=== PATIENT | male | born 1950 | race Caucasian/White ===

== ENCOUNTER 2017-07-20 09:13 | Emergency (ER) | payer MEDICARE ==
[2017-07-20] MEDS ORDERED: Zofran 4 MG/2 ML VIAL IV ONE (09:39)
[2017-07-20] MEDS ORDERED: Sodium Chloride 0.9% 1000 ML 1,000 ML IV SCH (09:45)
--- NOTE | 2017-07-20 10:09 | XRAY ---
Indication: Syncope. Vomiting. Multiple contiguous axial images obtained through the head without contrast. Comparison: None Normal appearing brain parenchyma, ventricles, and bony calvarium. Minimal right ethmoid sinus mucosal thickening. Mastoid air cells clear. Impression: Normal CT head without contrast exam. Incidental minimal paranasal sinus disease. CT DI 67.41
--- NOTE | 2017-07-20 10:09 | XRAY ---
Indication: Syncope. Vomiting. Comparison: None Portable chest demonstrates minimal lingular fibrosis/scarring. Remaining lungs clear. Heart is not enlarged and demonstrates previous CABG surgery. Bony thorax intact with mild degenerative changes. Impression: Nonacute portable chest with chronic features.
[2017-07-20] MEDS ORDERED: Sodium Chloride 0.9% 1000 ML 1,000 ML ONE (10:17)
[2017-07-20] MEDS ORDERED: Zofran 4 MG/2 ML VIAL ONE (10:17)
[2017-07-20 10:21] LABS: BASOPHIL % 0.4 % (0.0-0.4); Basophil (Absolute #) 0.04 (0-0.4); Eosinophil % 1.3 % (0.00-5.0); Eosinophil (Absolute #) 0.14 (0-0.5); Granulocyte Absolute (ANC) 7.89 (1.4-6.9); Granulocytes % 73.8 % (36.0-66.0); Hematocrit 44.8 % (42-50); Hemoglobin 15.2 gm/dl (12.5-18.0); Lymphocyte (Absolute #) 1.99 (1.0-4.6); Lymphocytes % 18.6 % (24.0-44.0); Mean Cell Volume 86.2 fl (78-100); Mean Corpuscular Hemoglobin 29.2 pg (26-32); Mean Corpuscular Hgb Concent. 33.9 g/dl (32-36); Mean Platelet Volume 10.9 fl (6-9.5); Monocyte (Absolute #) 0.63 (0.0-1.3); Monocytes % 5.9 % (0.0-12.0); Platelet Count 189 K/mm3 (150-450); Red Cell Distribution Width 13.9 % (11.5-14.0); White Blood Count 10.7 K/mm3 (4.0-10.5)
--- NOTE | 2017-07-20 10:30 | ERPHSYRPT ---
- History of Present Illness Time Seen by Provider: 07/20/17 09:30 Source: patient Exam Limitations: clinical condition Patient Subjective Stated Complaint: Pt states "I woke up at 5 am and started to vomit, I have been vomiting ever since." Triage Nursing Assessment: Pt alert and oriented X 3, skin pwd Pt ambulates with an upright steady gait, able to speak in clear full sentences. Pt vomiting bile and dry heaving. Physician History: PATIENT WITH A HISTORY OF CORONARY ARTERY DISEASE, HYPERTENSION, PREVIOUS CVA AND TIA, COMPLAINS OF AWAKENING FROM SLEEP, STOOL AT BEDSIDE HAD AN EPISODE OF SYNCOPE, FELL BACK INTO BED, THEN DEVELOPED FREQUENT EPISODES OF EMESIS X 8 EPISODES. DENIES ABDOMINAL PAIN, DIARRHEA, FEVER, HEADACHE, BLURRED VISION, OR FOCAL NUMBNESS, TINGLING OR WEAKNESS IN EXTREMITIES. Timing/Duration: today Severity: moderate Character of Deficits: none Deficits: no difficulties Baseline/Normal Cognition: alert oriented x 3 Current Cognition: alert oriented x 3 Associated Symptoms: vomiting Allergies/Adverse Reactions: Penicillins Allergy (Severe, Verified 07/20/17 09:37) Sulfa (Sulfonamide Antibiotics) Allergy (Severe, Verified 07/20/17 09:37) Home Medications: Alprazolam [Alprazolam ER] 0.5 mg PO DAILY 07/20/17 [History] Aspirin [Adult Low Dose Aspirin EC] 81 mg PO DAILY 07/20/17 [History] Carvedilol 25 mg PO DAILY 07/20/17 [History] Clopidogrel Bisulfate 75 mg [PLAVIX 75 MG Tablet] 75 mg PO DAILY 07/20/17 [History] Cyanocobalamin/Cobamamide [Vitamin B-12 5,000 Mcg Tab Sl] 1 each SL DAILY [History] Diltiazem HCl 120 mg [Cardizem CD 120 MG] 120 mg PO DAILY 07/20/17 [ History] Folic Acid 1 mg PO DAILY 07/20/17 [History] Isosorbide Mononitrate 30 mg [Imdur 30 MG] 30 mg PO DAILY 07/20/17 [History ] Nitroglycerin 0.4 mg Tablet [Nitrostat 0.4 MG Tablet] 0.4 mg SL 07/20/17 [ History] Pantoprazole Sodium [Protonix] 40 mg PO DAILY 07/20/17 [History] Rosuvastatin Calcium 40 mg PO DAILY 07/20/17 [History] Sertraline HCl 50 mg [Zoloft 50 mg Tablet] 50 mg PO DAILY 07/20/17 [History] Hx Tetanus, Diphtheria Vaccination/Date Given: Yes Hx Influenza Vaccination/Date Given: Yes Hx Pneumococcal Vaccination/Date Given: Yes Immunizations Up to Date: Yes - Review of Systems Constitutional: No Fever, No Chills Eyes: No Symptoms Ears, Nose, & Throat: No Symptoms Respiratory: No Symptoms, No Cough, No Dyspnea Cardiac: No Symptoms, No Chest Pain, No Edema, No Syncope Abdominal/Gastrointestinal: Nausea, Vomiting, No Abdominal Pain, No Diarrhea Genitourinary Symptoms: No Symptoms, No Dysuria Musculoskeletal: No Symptoms, No Back Pain, No Neck Pain Skin: No Rash Neurological: Other (SYNCOPE), No Dizziness, No Focal Weakness, No Sensory Changes Psychological: No Symptoms Endocrine: No Symptoms All Other Systems: Reviewed and Negative - Past Medical History Pertinent Past Medical History: Yes Neurological History: Stroke ENT History: No Pertinent History Cardiac History: Coronary Artery Disease, Myocardial Infarction ([place]), Other Respiratory History: Other Endocrine Medical History: No Pertinent History GI Medical History: No Pertinent History History: No Pertinent History Male Reproductive Disorders: No Pertinent History Other Medical History: spinal meingitis, left rotator cuff, spinal fusion, bialt hip, PE, CABG, CVA, stroke, shingles, heart ablasion. - Past Surgical History Past Surgical History: Yes Cardiac: CABG Other Surgical History: left rotator cuff - Social History Smoking Status: Never smoker Exposure to second hand smoke: No Drug Use: none Patient Lives Alone: No - Nursing Vital Signs Nursing Vital Signs: Initial Vital Signs Temperature 97.5 F 07/20/17 09:20 Pulse Rate 68 07/20/17 09:20 Respiratory Rate 16 07/20/17 09:20 Blood Pressure 120/103 07/20/17 09:20 O2 Sat by Pulse Oximetry 96 07/20/17 09:20 Pain Scale Pain Intensity 0 - Barry Coma Scale Best Eye Response ([place]): (4) open spontaneously Best Verbal Response ([place]): (5) oriented Best Motor Response ([place]): (6) obeys commands Barry Total: 15 - Physical Exam General Appearance: no apparent distress, alert Eye Exam: bilateral eye: PERRL, EOMI Ears, Nose, Throat Exam: normal ENT inspection, moist mucous membranes Neck Exam: normal inspection, non-tender, supple Respiratory: normal breath sounds, lungs clear, airway intact, No respiratory distress Cardiovascular: regular rate/rhythm, No edema Gastrointestinal: soft, normal bowel sounds (OBESE NONTENDER), No tenderness, No distention Back Exam: normal inspection Extremity Exam: normal inspection, No pedal edema Peripheral Pulses: carotid (R): 2+, carotid (L): 2+, femoral (R): 2+, femoral (L ): 2+, dorsalis-pedis (R): 2+ Mental Status: alert, oriented x 3, cooperative doorperson or luggage porter Exam: tongue midline Coordination/Gait: normal finger to nose, normal gait Motor/Sensory: no motor deficit, no sensory deficit, no pronator drift DTR: bicep (R): 2+, bicep (L): 2+, tricep (R): 2+, tricep (L): 2+ Skin Exam: normal color, warm, dry, No rash SpO2 Interpretation: normal SpO2: 96 Oxygen Delivery: Room Air - Course EKG Interpreted by Me: RATE, Sinus Rhythm, NORMAL AXIS - Radiology Exams Chest X-ray Interpretation: Discussed w/ radiologist (NONACUTE PORTABLE CHEST WITH CHRONIC FEATURES) - CT Exams Head CT Interpretation: No/Intracranial Hemorrhag (MINIMAL INCIDENTAL PARANASAL SINUS DISEASE) Ordered Tests: Active Orders 24 hr Category Date Time Status Program Director [employer] STAT Care 07/20/17 09:37 Active Clean Catch Urine Specimen STAT Care 07/20/17 09:37 Active EKG-ER Only STAT Care 07/20/17 09:37 Active IV Insertion STAT Care 07/20/17 09:37 Active Oxygen-ED Only NASAL CANNULA 2 lpm Care 07/20/17 09:37 Active CHEST 1 VIEW (PORTABLE) Stat Exams 07/20/17 09:37 Completed HEAD WITHOUT CONTRAST [CT] Stat Exams 07/20/17 09:37 Completed CBC W DIFF Stat Lab 07/20/17 09:33 Completed CMP Stat Lab 07/20/17 09:33 Completed PROTIME WITH INR Stat Lab 07/20/17 09:33 Completed Urine Triage Profile Stat Lab 07/20/17 12:40 Received Medication Summary Generic Name Dose Route Start Last Admin Trade Name Freq PRN Reason Stop Dose Admin Sodium Chloride 1,000 mls @ 200 mls/hr 07/20/17 09:45 07/20/17 10:18 Sodium Chloride 0.9% 1000 Ml IV 08/19/17 09:44 200 mls/hr .Q5H PEDRO Administration Discontinued Medications Generic Name Dose Route Start Last Admin Trade Name Freq PRN Reason Stop Dose Admin Fentanyl Citrate 50 mcg 07/20/17 12:26 07/20/17 12:31 Sublimaze 100 Mcg/2 Ml IV 07/20/17 12:27 50 mcg STAT ONE Administration Fentanyl Citrate Confirm 07/20/17 12:29 Sublimaze 100 Mcg/2 Ml Administered 07/20/17 12:30 Dose 100 mcg .ROUTE .STK-MED ONE Ondansetron HCl 4 mg 07/20/17 09:39 07/20/17 10:19 Zofran 4 Mg/2 Ml Vial IV 07/20/17 09:40 4 mg STAT ONE Administration Ondansetron HCl Confirm 07/20/17 10:17 Zofran 4 Mg/2 Ml Vial Administered 07/20/17 10:18 Dose 4 mg .ROUTE .STK-MED ONE Lab/Rad Data: Laboratory Result Diagrams 07/20/17 09:33 Laboratory Results 07/20/17 07/20/17 07/20/17 Range/Units 09:33 09:33 09:33 WBC 10.7 H (4.0-10.5) K/mm3 RBC 5.20 (4.1-5.6) M/mm3 Hgb 15.2 (12.5-18.0) gm/dl Hct 44.8 (42-50) % MCV 86.2 (78-100) fl MCH 29.2 (26-32) pg MCHC 33.9 (32-36) g/dl RDW 13.9 (11.5-14.0) % Plt Count 189 (150-450) K/mm3 MPV 10.9 H (6-9.5) fl Gran % 73.8 H (36.0-66.0) % Eos # (Auto) 0.14 (0-0.5) Absolute Lymphs (auto) 1.99 (1.0-4.6) Absolute Monos (auto) 0.63 (0.0-1.3) Lymphocytes % 18.6 L (24.0-44.0) % Monocytes % 5.9 (0.0-12.0) % Eosinophils % 1.3 (0.00-5.0) % Basophils % 0.4 (0.0-0.4) % Absolute Granulocytes 7.89 H (1.4-6.9) Basophils # 0.04 (0-0.4) PT 12.0 (8.83-12.87) SECONDS INR 1.08 (0.8-3.0) Anion Gap (5-15) MEQ/L - Progress Progress: improved Progress Note: 07/20/17 13:40 IV NORMAL SALINE 250ML/HR, ZOFRAN 4MG IV FENTANYL 50MCG IV Discussed with Dr.: Other (DISCUSSED WITH NURSE PRACTITIONER JORGE AT 1500 ACCEPTS TRANSFER TO [facility]IA [facility]) - Departure Time of Disposition: 16:30 Departure Disposition: Transfer Clinical Impression: SYNCOPE, INTRACTABLE EMESIS Condition: Stable Critical Care Time: No Referrals: DOCTOR,NO FAMILY [Primary Care Provider] -
[2017-07-20 10:43] LABS: INR 1.08 (0.8-3.0)
[2017-07-20] MEDS ORDERED: SUBLIMAZE 100 MCG/2 ML IV ONE (12:26)
[2017-07-20] MEDS ORDERED: SUBLIMAZE 100 MCG/2 ML ONE (12:29)
[2017-07-20 13:03] VITALS: BP 150/107; PULSE 74
[2017-07-20 13:42] VITALS: O2SAT 96
[2017-07-21 14:06] LABS: Amphetamine,Urine NEGATIVE (NEGATIVE); Barbiturate,Urine NEGATIVE (NEGATIVE); Benzodiazepine,Urine POSITIVE (NEGATIVE); Cocaine,Urine NEGATIVE (NEGATIVE); Methadone,Urine NEGATIVE (NEGATIVE); Opiate,Urine NEGATIVE (NEGATIVE); PCP,Urine NEGATIVE (NEGATIVE); THC,Urine NEGATIVE (NEGATIVE)
== END 2017-07-20 16:35 | disposition short-term general hospital (02) ==
LOC: ED 09:13
DX: R11.10 Vomiting, unspecified (principal); R55 Syncope and collapse; Z79.01 Long term (current) use of anticoagulants; Z79.82 Long term (current) use of aspirin; Z79.899 Other long term (current) drug therapy
CPT/HCPCS: 36000; 36415; 70450; 71045; 80053; 80307; 85025; 85610; 93005; 93041; 96360; 96361; 96374; 96375; 99284; 99285; J2405; J3010

== ENCOUNTER 2020-05-07 08:23 | Day surgery (SDC) | payer MEDICARE, OTHER ==
--- NOTE | 2020-05-07 08:06 | HP ---
DATE OF SURGERY: 05/07/2020 HISTORY OF PRESENT ILLNESS: The patient is a 69 year-old with last colonoscopy ten years ago unsure whether she had polyps then, does not remember. No bloody stools. No change in bowel movements. No abdominal pain. PAST MEDICAL HISTORY: He is seen by the [facility]. He had some meningitis when he was [age] years old. He had TIA in the past. He had benign paroxysmal vertigo in the past. He had a prior stroke in 2008. Spine problems and he had a few hip surgeries in the past. He had myocardial infarction in the past, shingles, heart ablation and heart bypass in the past. PAST SURGICAL HISTORY: Heart cath in the past. Coronary stents in the past. CABG in the past. Hip replacement at [facility] in the past with Staph infection. Spinal fusion in the past. Left rotator cuff in the past. MEDICATIONS: Eliquis, folic acid, alprazolam, isosorbide mononitrate, carvedilol, sertraline, rosuvastatin, Nitrostat, vitamin B12, vitamin B3, meclizine, tramadol, Garlique. ALLERGIES: PENICILLIN. SULFA. FAMILY HISTORY: MS, dementia, Parkinson's. Negative for colon cancer. SOCIAL HISTORY: No smoking or alcohol abuse. REVIEW OF SYSTEMS: Fourteen systems reviewed per admission assessment. No chest pain or palpitations. Other systems negative or noncontributory as above and per preadmission questionnaire. PHYSICAL EXAMINATION: GENERAL: No acute distress. HEENT: Sclerae nonicteric. NECK: No JVD. CHEST: Equal excursion, nonlabored breathing. CVS: Regular rate and rhythm. ABDOMEN: Soft. No peritoneal signs. EXTREMITIES: No significant edema. NEURO: Alert, oriented, moving extremities symmetrically. No gross motor deficits noted. RECTAL: Deferred timed to endoscopy exam. PSYCH: Appropriate mood and affect. IMPRESSION: Last colonoscopy ten years ago. He is in need of follow up screening colonoscopy. I feel he is a candidate. Risks and benefits explained in detail including but not limited to bleeding or infection, risk of bowel injury or perforation possibly requiring open procedure, risk of missed or nondiagnosis or incomplete exam possibly requiring barium enema, other studies or procedures, general risk of anesthesia or sedation, risk of bowel prep but not limited to. He understands all the above but not limited to and will proceed with outpatient colonoscopy.
[2020-05-07] MEDS ORDERED: Lactated Ringers 1,000 ML IV SCH (09:00)
[2020-05-07] MEDS ORDERED: Lactated Ringers 1,000 ML IV ONE (09:02)
[2020-05-07 09:03] VITALS: O2SAT 96
[2020-05-07] MEDS ORDERED: DIPRIVAN 200 MG/20 ML IV ONE (10:37)
[2020-05-07 12:36] VITALS: BP 140/97; PULSE 88
--- NOTE | 2020-05-08 09:07 | OP ---
SURGERY DATE/TIME: 05/07/2020 1040 PREOPERATIVE DIAGNOSIS: Need screening colonoscopy. POSTOPERATIVE DIAGNOSES: 1) Small cecal polyp near appendiceal orifice. 2) Small polyps ascending colon x2, transverse colon x2. 3) Diverticulosis. 4) Fair bowel prep. 5) ASA Class III. 6) Photo documented appendiceal orifice and ileocecal valve with palpation confirming location. PROCEDURES: 1) Colonoscopy to the tip of the terminal ileum which was grossly unremarkable with hot biopsy removal of small cecal polyp, hot biopsy polypectomy removal. 2) Hot biopsy polypectomy removal of piecemeal small proximal ascending colon polyp. 3) Hot biopsy removal of small additional ascending colon polyp. 4) Hot biopsy removal in piecemeal fashion of a couple proximal transverse colon polyps removed with hot biopsy polyectomy. SURGEON: Dr. Estiven Dominique. ANESTHESIA: MAC. ESTIMATED BLOOD LOSS: Minimal. INDICATIONS: As noted above. Risks and benefits explained in detail but not limited to and consent obtained. DESCRIPTION OF PROCEDURE AND FINDINGS: The patient is taken to the operating room. MAC anesthesia introduced. After official time out and no disagreement with planned procedure, digital rectal exam did not reveal any rectal masses. He did have some small internal and external hemorrhoids. Video colonoscope inserted and passed up the tortuous sigmoid, descending, transverse and ascending colon. With the aid of external pressure able to be passed around to the cecum and up to the tip of the terminal ileum which was grossly unremarkable. Prep overall was fair. ASA Class III. On slow careful withdraw of the scope over the next ten minutes removed a small polyp in the cecum near the appendiceal orifice with hot biopsy forceps. Good hemostasis noted. There is a small polyp about 3 mm in size removed in piecemeal fashion with hot biopsy forceps and brief bursts of cautery as the snare was not able to pass through adequately to allow for snaring of these lesions with this particular scope. There was another small polyp in the ascending colon that was removed with hot biopsy forceps with brief bursts of cautery. Good hemostasis noted. Two small early polyps in the transverse colon removed with hot biopsy forceps with brief bursts of cautery. Again, as the snare was not functional through this particular scope. Good hemostasis noted. He had moderate diverticulosis in the left colon. Prep overall is fair, some liquidy semisolid stool that slightly limited the exam for small or tiny lesions. The scope is carefully withdrawn. Again, withdraw time had been around ten minutes. He had some small internal and external hemorrhoids. There were no signs of any large polyps, masses or obstructing lesions. He tolerated the procedure well. I spoke over the phone with family or friend that the hospital called as this hospital is still not letting family members in the hospital unlike other facilities. I will see him back in the office next week to go over results.
== END 2020-05-07 12:20 | disposition home or self-care (01) ==
LOC: SDC 08:23
PROVIDERS: ATTEND Surgery
DX: Z12.11 Encounter for screening for malignant neoplasm of colon (principal); K57.30 Diverticulosis of large intestine without perforation or abscess without bleeding; D12.2 Benign neoplasm of ascending colon; D12.0 Benign neoplasm of cecum; D12.3 Benign neoplasm of transverse colon; K64.4 Residual hemorrhoidal skin tags; K64.8 Other hemorrhoids
CPT/HCPCS: 88305; J2704

== ENCOUNTER 2022-02-01 13:14 | Emergency (ER) | payer OTHER, MEDICARE ==
--- NOTE | 2022-02-01 13:18 | ERPHSYRPT ---
- History of Present Illness Time Seen by Provider: 02/01/22 13:17 Historian: patient Exam Limitations: no limitations Physician History: This is a 71-year-old white male patient who has history of a in the past, coronary disease, myocardial infarction, cardiac stents, coronary artery bypass graft, cardiac ablation and atrial fibrillation. Patient is taking Eliquis. Patient also has history of hyperlipidemia, hypertension, CHF, pulmonary embolus, gastroesophageal reflux disease and anxiety issues. Within the last hour patient noticed chest pressure that is substernal central without radiation. He states is not necessarily the same kind of chest pain that he has had in the past with myocardial infarction's. Soon after, while the patient was driving, he noticed some double vision. Patient does have a history of vertigo. He does take meclizine daily for this condition. Patient states he did take meclizine this morning. 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 Patient sees a Dr. De La Cruz as his pollution control engineer in [facility]. Yue ent states that he had a stress test done within the last few months and there were no significant findings and no evidence of valvular leakage. At the time of arrival to the emergency department, the patient states that his symptoms have nearly completely resolved. Timing/Duration: today Quality: pressure Location: substernal, central Chest Pain Radiation: no radiation Severity of Pain-Max: mild Severity of Pain-Current: mild Modifying Factors: Improves With: nothing Associated Symptoms: dizziness (Patient has a history of vertigo), No shortness of breath, No headache Prior Chest Pain/Cardiac Workup: cardiac cath, heart attack, pulmonary embolism, stress test Nitro Today/Relief: no nitro taken today Aspirin Treatment Today: no aspirin today Allergies/Adverse Reactions: Penicillins Allergy (Severe, Verified 02/01/22 13:36) Swelling of Tongue and Lips Sulfa (Sulfonamide Antibiotics) Allergy (Severe, Verified 02/01/22 13:36) Swelling of Tongue and Lips Home Medications: Alprazolam [Alprazolam ER] 0.5 mg PO DAILY 07/20/17 [History] Cyanocobalamin/Cobamamide [Vitamin B-12 5,000 Mcg Tab Sl] 1 each SL DAILY 07/20/17 [History] Folic Acid 1 mg PO DAILY 07/20/17 [History] Isosorbide Mononitrate 30 mg [Imdur 30 MG] 30 mg PO DAILY 07/20/17 [History] Nitroglycerin 0.4 mg Tablet [Nitrostat 0.4 MG Tablet] 0.4 mg SL Q5MIN PRN MR X 3 PRN 07/20/17 [History] Rosuvastatin Calcium 40 mg PO DAILY 07/20/17 [History] carvediloL [Carvedilol] 25 mg PO DAILY 07/20/17 [History] Cholecalciferol (Vitamin D3) [Vitamin D3] 1,000 unit PO DAILY 04/27/20 [History] Garlic 1 each PO DAILY 04/27/20 [History] Meclizine HCl 25 mg [Antivert 25 mg] 25 mg PO DAILY 04/27/20 [History] Spironolactone 25 mg [Aldactone 25 MG] 25 mg PO DAILY 04/27/20 [History] Tramadol HCl 50 mg PO DAILY PRN PRN 04/27/20 [History] Hx Tetanus, Diphtheria Vaccination/Date Given: Yes Hx Influenza Vaccination/Date Given: Yes Hx Pneumococcal Vaccination/Date Given: Yes Travel Risk - International Travel Have you traveled outside of the country in past 3 weeks: No - Coronavirus Screening Are you exhibiting any of the following symptoms?: No Close contact with a COVID-19 positive Pt in past 14-21 Days: No - Review of Systems Constitutional: No Symptoms Eyes: No Symptoms Ears, Nose, & Throat: No Symptoms Respiratory: No Symptoms Cardiac: Chest Pain (Described as a nonradiating central substernal pressure) Abdominal/Gastrointestinal: No Symptoms Genitourinary Symptoms: No Symptoms Musculoskeletal: No Symptoms Skin: No Symptoms Neurological: Dizziness (Brief dizziness with brief double vision) Psychological: No Symptoms Endocrine: No Symptoms Hematologic/Lymphatic: No Symptoms Immunological/Allergic: No Symptoms All Other Systems: Reviewed and Negative - Past Medical History Pertinent Past Medical History: Yes Neurological History: Stroke ENT History: No Pertinent History Cardiac History: Angina, Congestive Heart Failure, Coronary Artery Disease, High Cholesterol, Hypertension, Myocardial Infarction ([place]), Other Respiratory History: Pulmonary Embolism, Other Endocrine Medical History: No Pertinent History Musculoskeletal History: Arthritis, Osteoarthritis GI Medical History: GERD History: Other Psycho-Social History: Anxiety Male Reproductive Disorders: No Pertinent History Other Medical History: spinal meingitis, left rotator cuff, spinal fusion, bialt hip, PE, CABG, CVA, stroke, shingles, heart ablasion. - Past Surgical History Past Surgical History: Yes Neuro Surgical History: No Pertinent History Cardiac: CABG, Cardiac Catheterization, Cardiac Stent, Other Respiratory: No Pertinent History Gastrointestinal: No Pertinent History Genitourinary: No Pertinent History Musculoskeletal: Joint Replacement Male Surgical History: No Pertinent History Other Surgical History: left rotator cuff, cardiac ablation, bilateral hip replacedment, lumbar fusion. - Social History Smoking Status: Never smoker Exposure to second hand smoke: No Drug Use: none Patient Lives Alone: No - Nursing Vital Signs Nursing Vital Signs: Initial Vital Signs Temperature 97.0 F 02/01/22 13:35 Pulse Rate 82 02/01/22 13:35 Respiratory Rate 18 02/01/22 13:35 Blood Pressure 140/81 02/01/22 13:35 O2 Sat by Pulse Oximetry 94 L 02/01/22 13:35 Pain Scale Pain Intensity 4 - Physical Exam General Appearance: no apparent distress, alert, anxiety Eye Exam: PERRL/EOMI, eyes nml inspection Ears, Nose, Throat Exam: normal ENT inspection, moist mucous membranes Neck Exam: normal inspection, non-tender, supple, full range of motion Respiratory Exam: normal breath sounds, lungs clear, airway intact, No chest tenderness, No respiratory distress Cardiovascular Exam: regular rate/rhythm, normal heart sounds, normal peripheral pulses Gastrointestinal/Abdomen Exam: soft, normal bowel sounds, No tenderness Rectal Exam: not done Back Exam: normal inspection, normal range of motion, No CVA tenderness Extremity Exam: normal inspection, normal range of motion, pelvis stable Neurologic Exam: alert, oriented x 3, cooperative, gear tester II-XII nml as tested, normal mood/affect, nml cerebellar function, nml station & gait, sensation nml Skin Exam: normal color, warm, dry Lymphatic Exam: No adenopathy SpO2 Interpretation: normal O2 Delivery: Room Air - Course Nursing assessment & vital signs reviewed: Yes EKG Interpreted by Me: RATE (76), Sinus Rhythm, NORMAL INTERVALS, NORMAL QRS, Non-specific ST Changes, Other (Findings consistent with LVH. No acute ischemic changes present) Ordered Tests: Active Orders 24 hr Category Date Time Status EKG-ER Only STAT Care 02/01/22 13:46 Active IV Insertion STAT Care 02/01/22 13:46 Active Pulse Oximetry (ED) STAT Care 02/01/22 13:46 Active HEAD WITHOUT CONTRAST [CT] Stat Exams 02/01/22 13:16 Taken CBC W DIFF Stat Lab 02/01/22 13:40 Completed CMP Stat Lab 02/01/22 13:40 Completed D-DIMER QUANTITATIVE Stat Lab 02/01/22 13:40 Completed NT PRO BNP Stat Lab 02/01/22 13:40 Completed TROPONIN Q4H Lab 02/01/22 13:40 Completed TROPONIN Q4H Lab 02/01/22 16:46 Completed TROPONIN Q4H Lab 02/01/22 22:00 Ordered Medication Summary Discontinued Medications Generic Name Dose Route Start Last Admin Trade Name Freq PRN Reason Stop Dose Admin Aspirin 324 mg 02/01/22 13:46 02/01/22 13:59 Aspirin 81 Mg Tab.Chew PO 02/01/22 13:47 324 mg STAT ONE Administration Lab/Rad Data: Laboratory Result Diagrams 02/01/22 13:40 02/01/22 13:40 Laboratory Results 02/01/22 02/01/22 02/01/22 Range/Units 16:46 13:40 13:40 WBC (4.0-10.5) x10^3/uL RBC (4.1-5.6) x10^6/uL Hgb (12.5-18.0) g/dL Hct (42-50) % MCV (78-100) fL MCH (26-32) pg MCHC (32-36) g/dL RDW (11.5-14.0) % Plt Count (150-450) x10^3/uL MPV (7.5-11.0) fL Gran % (36.0-66.0) % Immature Gran % (Auto) (0.00-0.4) % Nucleat RBC Rel Count (0.00-0.1) % Eos # (Auto) (0-0.5) x10^3/uL Immature Gran # (Auto) (0.00-0.03) x10^3u/L Absolute Lymphs (auto) (1.0-4.6) x10^3/uL Absolute Monos (auto) (0.0-1.3) x10^3/uL Absolute Nucleated RBC (0.00-0.01) x10^3u/L Lymphocytes % (24.0-44.0) % Monocytes % (0.0-12.0) % Eosinophils % (0.00-5.0) % Basophils % (0.0-0.4) % Absolute Granulocytes (1.4-6.9) x10^3/uL Basophils # (0-0.4) x10^3/uL D-Dimer < 0.19 (0.0-0.50) mg/L Sodium (137-145) mmol/L Potassium (3.5-5.1) mmol/L Chloride (98-107) mmol/L Carbon Dioxide (22-30) mmol/L Anion Gap (5-15) MEQ/L BUN (9-20) mg/dL Creatinine (0.66-1.25) mg/dL Estimated GFR ML/MIN Glucose (74-106) mg/dL Calcium (8.4-10.2) mg/dL Total Bilirubin (0.2-1.3) mg/dL AST (17-59) U/L ALT (0-50) U/L Alkaline Phosphatase (38-126) U/L Troponin I < 0.012 < 0.012 (0.000-0.034) ng/mL NT-Pro-B Natriuret Pep (0-900) pg/mL Serum Total Protein (6.3-8.2) g/dL Albumin (3.5-5.0) g/dL 02/01/22 02/01/22 Range/Units 13:40 13:40 WBC 6.4 (4.0-10.5) x10^3/uL RBC 5.07 (4.1-5.6) x10^6/uL Hgb 14.9 (12.5-18.0) g/dL Hct 45.5 (42-50) % MCV 89.7 (78-100) fL MCH 29.4 (26-32) pg MCHC 32.7 (32-36) g/dL RDW 13.1 (11.5-14.0) % Plt Count 192 (150-450) x10^3/uL MPV 10.1 (7.5-11.0) fL Gran % 57.3 (36.0-66.0) % Immature Gran % (Auto) 0.2 (0.00-0.4) % Nucleat RBC Rel Count 0.0 (0.00-0.1) % Eos # (Auto) 0.15 (0-0.5) x10^3/uL Immature Gran # (Auto) 0.01 (0.00-0.03) x10^3u/L Absolute Lymphs (auto) 1.87 (1.0-4.6) x10^3/uL Absolute Monos (auto) 0.61 (0.0-1.3) x10^3/uL Absolute Nucleated RBC 0.00 (0.00-0.01) x10^3u/L Lymphocytes % 29.4 (24.0-44.0) % Monocytes % 9.6 (0.0-12.0) % Eosinophils % 2.4 (0.00-5.0) % Basophils % 1.1 (0.0-0.4) % Absolute Granulocytes 3.66 (1.4-6.9) x10^3/uL Basophils # 0.07 (0-0.4) x10^3/uL D-Dimer (0.0-0.50) mg/L Sodium 137 (137-145) mmol/L Potassium 5.0 (3.5-5.1) mmol/L Chloride 108 H (98-107) mmol/L Carbon Dioxide 23 (22-30) mmol/L Anion Gap 11.4 (5-15) MEQ/L BUN 13 (9-20) mg/dL Creatinine 0.91 (0.66-1.25) mg/dL Estimated GFR > 60.0 ML/MIN Glucose 96 (74-106) mg/dL Calcium 9.1 (8.4-10.2) mg/dL Total Bilirubin 1.10 (0.2-1.3) mg/dL AST 37 (17-59) U/L ALT 25 (0-50) U/L Alkaline Phosphatase 51 (38-126) U/L Troponin I (0.000-0.034) ng/mL NT-Pro-B Natriuret Pep 39.7 (0-900) pg/mL Serum Total Protein 7.9 (6.3-8.2) g/dL Albumin 4.4 (3.5-5.0) g/dL - Progress Progress: improved, re-examined Air Movement: good Progress Note: 02/01/22 17:23 Medical decision making: This patient no longer has chest pain or pressure. He no longer has dizziness or double vision. We will discharge the patient to [facility]. He has had 2 troponin levels that are negative for acute myocardial infarction. He may have had a TIA. We will discharge him to home and he is to follow-up with pollution control engineer and neurologist for further evaluation management. Blood Culture(s) Obtained: No Antibiotics given: No Counseled pt/family regarding: lab results, diagnosis, need for follow-up, rad results - Departure Departure Disposition: Home Clinical Impression: TIA (transient ischemic attack), Pressure in chest Condition: Stable Critical Care Time: No Referrals: DOCTOR,NO FAMILY [NON-STAFF PHY W/O PRIVILEGES] - Follow up/PCP as directed Additional Instructions: Take all your medication as prescribed. Follow-up with a pollution control engineer on 02/03/2022, and make them aware of your symptoms and your work-up at the emergency department.
[2022-02-01] MEDS ORDERED: BABY ASPIRIN 81 MG CHEW PO ONE (13:46)
[2022-02-01 13:48] VITALS: O2SAT 95
[2022-02-01 13:53] LABS: Absolute Neutrophil Ct (ANC) 3.66 x10^3/uL (1.4-6.9); Basophil (Absolute #) 0.07 x10^3/uL (0-0.4); Eosinophil % 2.4 % (0.00-5.0); Eosinophil (Absolute #) 0.15 x10^3/uL (0-0.5); Hematocrit 45.5 % (42-50); Hemoglobin 14.9 g/dL (12.5-18.0); Lymphocyte (Absolute #) 1.87 x10^3/uL (1.0-4.6); Lymphocytes % 29.4 % (24.0-44.0); Mean Cell Volume 89.7 fL (78-100); Mean Corpuscular Hemoglobin 29.4 pg (26-32); Mean Corpuscular Hgb Concent. 32.7 g/dL (32-36); Mean Platelet Volume 10.1 fL (7.5-11.0); Monocyte (Absolute #) 0.61 x10^3/uL (0.0-1.3); Monocytes % 9.6 % (0.0-12.0); Neutrophil % 57.3 % (36.0-66.0); Platelet Count 192 x10^3/uL (150-450); Red Blood Count 5.07 x10^6/uL (4.1-5.6); Red Cell Distribution Width 13.1 % (11.5-14.0); White Blood Count 6.4 x10^3/uL (4.0-10.5)
[2022-02-01 14:10] LABS: ALBUMIN 4.4 g/dL (3.5-5.0); ALKALINE PHOSPHATASE 51 U/L (38-126); ANION GAP 11.4 MEQ/L (5-15); BLOOD UREA NITROGEN 13 mg/dL (9-20); CHLORIDE 108 mmol/L (98-107); Calcium 9.1 mg/dL (8.4-10.2); Carbon Dioxide 23 mmol/L (22-30); Creatinine 1 0.91 mg/dL (0.66-1.25); EST GLOMERULAR FILTRATION RATE > 60.0 ML/MIN; Glucose 96 mg/dL (74-106); NT PRO BNP 39.7 pg/mL (0-900); SGOT/AST 37 U/L (17-59); SGPT/ALT 25 U/L (0-50); SODIUM 137 mmol/L (137-145); Total Protein 7.9 g/dL (6.3-8.2)
[2022-02-01 17:18] VITALS: BP 128/78; PULSE 78
--- NOTE | 2022-02-01 19:15 | XRAY ---
Indication: Double vision. History of stroke. Multiple contiguous axial images obtained through the head without contrast. Comparison: July 20, 2017 Age-appropriate global atrophy and minimal periventricular degenerative micro-ischemia bilaterally. No acute intracranial hemorrhage, abnormal extra-axial fluid collection, or mass effect. Fourth ventricle is midline without hydrocephalus. Bony calvarium intact. Mild mucosal thickening both ethmoid and right sphenoid sinuses. Mastoid air cells are clear. Impression: Nonacute senile brain. Incidental mild paranasal sinus disease. Comment: Preliminary interpretation made by [facility]. No critical discrepancy.
== END 2022-02-01 17:41 | disposition home or self-care (01) ==
LOC: ED 13:14
DX: G45.9 Transient cerebral ischemic attack, unspecified (principal); R07.9 Chest pain, unspecified; H53.2 Diplopia; E78.5 Hyperlipidemia, unspecified; I11.0 Hypertensive heart disease with heart failure; I50.9 Heart failure, unspecified; Z79.01 Long term (current) use of anticoagulants; Z79.899 Other long term (current) drug therapy
CPT/HCPCS: 36000; 36415; 70450; 80053; 83880; 84484; 85025; 85379; 93005; 94760; 99284; A9270-GY

== ENCOUNTER 2023-09-11 22:27 | Emergency (ER) | payer OTHER ==
[2023-09-11 22:33] VITALS: TEMP 96.4
--- NOTE | 2023-09-11 22:35 | ERPHSYRPT ---
- History of Present Illness Time Seen by Provider: 09/11/23 22:35 Source: patient Exam Limitations: no limitations Physician History: This is an obese 72-year-old white male patient who was at home in his barn and noticed that there was a cat up in the barn stuck. The patient, who has positional vertigo, suddenly looked up, which he states he knew he should not have but he wanted to help get the cat down from where he if he was stuck in the barn and the patient began having his vertigo spell. He fell forward and fell into a concrete slab going across his abdomen. He did not hit his chest in any way per his report. He did not lose consciousness. He did not hit his head or neck. His main complaint upon arrival to the emergency department is abdominal pain and some mild shortness of breath because his abdomen hurts when he takes a deep breath. Patient was brought into the emergency department by the paramedics. 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 He denies chest pain and he denies shortness of breath today. Occurred: just prior to arrival Reason for Fall: became dizzy (Vertigo set and when he looked up) Injuries/Pain Location: abdomen Loss of Consciousness: no loss of consciousness Quality: aching Severity of Pain-Max: moderate Severity of Pain-Current: moderate Modifying Factors: Improves With: movement Associated Symptoms (Fall): abdominal pain, dizziness, No back pain, No confusion, No chest pain, No extremity injury, No headache Allergies/Adverse Reactions: Penicillins Allergy (Severe, Verified 02/01/22 13:36) Swelling of Tongue and Lips Sulfa (Sulfonamide Antibiotics) Allergy (Severe, Verified 02/01/22 13:36) Swelling of Tongue and Lips Home Medications: Alprazolam [Alprazolam ER] 0.5 mg PO DAILY 07/20/17 [History] Cyanocobalamin/Cobamamide [Vitamin B-12 5,000 Mcg Tab Sl] 1 each SL DAILY 07/20/17 [History] Folic Acid 1 mg PO DAILY 07/20/17 [History] Isosorbide Mononitrate 30 mg [Imdur 30 MG] 30 mg PO DAILY 07/20/17 [History] Nitroglycerin 0.4 mg Tablet [Nitrostat 0.4 MG Tablet] 0.4 mg SL Q5MIN PRN MR X 3 PRN 07/20/17 [History] Rosuvastatin Calcium 40 mg PO DAILY 07/20/17 [History] carvediloL [Carvedilol] 25 mg PO DAILY 07/20/17 [History] Cholecalciferol (Vitamin D3) [Vitamin D3] 1,000 unit PO DAILY 04/27/20 [History] Garlic 1 each PO DAILY 04/27/20 [History] Meclizine HCl 25 mg [Antivert 25 mg] 25 mg PO DAILY 04/27/20 [History] Spironolactone 25 mg [Aldactone 25 MG] 25 mg PO DAILY 04/27/20 [History] Tramadol HCl 50 mg PO DAILY PRN PRN 04/27/20 [History] Hx Tetanus, Diphtheria Vaccination/Date Given: Yes Hx Influenza Vaccination/Date Given: Yes Hx Pneumococcal Vaccination/Date Given: Yes Travel Risk - International Travel Have you traveled outside of the country in past 3 weeks: No - Emerging Infectious Disease Are you exhibiting symptoms associated with any current EIDs: No - Review of Systems Constitutional: No Symptoms Eyes: No Symptoms Ears, Nose, & Throat: No Symptoms Respiratory: No Symptoms Cardiac: No Symptoms Abdominal/Gastrointestinal: Abdominal Pain, Nausea, Vomiting Genitourinary Symptoms: No Symptoms Musculoskeletal: No Symptoms Skin: No Symptoms Neurological: Vertigo (Occurred when he suddenly looked up.. This has been a problem for him in the past.) Psychological: Anxiety Endocrine: No Symptoms Hematologic/Lymphatic: No Symptoms Immunological/Allergic: No Symptoms All Other Systems: Reviewed and Negative - Past Medical History Pertinent Past Medical History: Yes Neurological History: Stroke ENT History: No Pertinent History Cardiac History: Angina, Congestive Heart Failure, Coronary Artery Disease, High Cholesterol, Hypertension, Myocardial Infarction (ID), Other Respiratory History: Pulmonary Embolism, Other Endocrine Medical History: No Pertinent History Musculoskeletal History: Arthritis, Osteoarthritis GI Medical History: GERD History: Other Psycho-Social History: Anxiety Male Reproductive Disorders: No Pertinent History Other Medical History: spinal meingitis, left rotator cuff, spinal fusion, bialt hip, PE, CABG, CVA, stroke, shingles, heart ablasion. - Past Surgical History Past Surgical History: Yes Neuro Surgical History: No Pertinent History Cardiac: CABG, Cardiac Catheterization, Cardiac Stent, Other Respiratory: No Pertinent History Gastrointestinal: No Pertinent History Genitourinary: No Pertinent History Musculoskeletal: Joint Replacement Male Surgical History: No Pertinent History Other Surgical History: left rotator cuff, cardiac ablation, bilateral hip replacement, lumbar fusion, stent placed 2008, skin cancer removal above R eyebrow in June. - Social History Smoking Status: Never smoker Exposure to second hand smoke: No Drug Use: none Patient Lives Alone: No - Nursing Vital Signs Nursing Vital Signs: Initial Vital Signs Temperature 96.4 F 09/11/23 22:27 Pulse Rate 106 H 09/11/23 22:27 Respiratory Rate 22 09/11/23 22:27 Blood Pressure 107/82 09/11/23 22:27 O2 Sat by Pulse Oximetry 99 09/11/23 22:27 Pain Scale Pain Intensity 8 - Barry Coma Score Best Eye Response (Barry): (4) open spontaneously Best Verbal Response (Barry): (5) oriented Best Motor Response (Barry): (6) obeys commands Barry Total: 15 - Physical Exam General Appearance: no apparent distress, alert, anxiety Head Injury: no evidence of injury Eye Exam: PERRL/EOMI, eyes nml inspection ENT Exam: airway nml, nml ext.inspection Neck Exam: supple, trachea midline, full range of motion, normal alignment, normal inspection Respiratory/Chest Exam: normal breath sounds, No chest tenderness, No respiratory distress, No ecchymosis, No crepitus Cardiovascular Exam: tachycardia (Mild) Gastrointestinal Exam: soft, tenderness (Across his abdomen. 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 Patient's QTc is 458.) Ordered Tests: Active Orders 24 hr Category Date Time Status EKG-ER Only STAT Care 09/11/23 23:09 Active IV Insertion STAT Care 09/11/23 23:09 Active ABDOMEN AND PELVIS W/0 CONTRAS [CT] Stat Exams 09/11/23 23:09 Completed CHEST 1 VIEW (PORTABLE) Stat Exams 09/11/23 23:09 Completed CBC W DIFF Stat Lab 09/11/23 23:00 Completed CMP Stat Lab 09/11/23 23:00 Completed TROPONIN Q4H Lab 09/11/23 23:00 Completed TROPONIN Q4H Lab 09/12/23 03:15 Ordered TROPONIN Q4H Lab 09/12/23 07:15 Ordered Medication Summary Generic Name Dose Route Start Last Admin Trade Name Freq PRN Reason Stop Dose Admin Sodium Chloride 1,000 mls @ 100 mls/hr 09/11/23 23:15 09/11/23 23:29 Sodium Chloride 0.9% 1000 Ml IV 10/11/23 23:14 100 mls/hr .Q10H PEDRO Administration Discontinued Medications Generic Name Dose Route Start Last Admin Trade Name Freq PRN Reason Stop Dose Admin Morphine Sulfate 4 mg 09/11/23 23:09 09/11/23 23:29 Morphine Sulfate 4 Mg/Ml Injection IV 09/11/23 23:10 4 mg STAT ONE Administration Morphine Sulfate Confirm 09/11/23 23:27 Morphine Sulfate 4 Mg/Ml Injection Administered 09/11/23 23:28 Dose 4 mg .ROUTE .STK-MED ONE Morphine Sulfate 2 mg 09/12/23 01:18 09/12/23 01:26 Morphine Sulfate 2 Mg/Ml Inj IV 09/12/23 01:19 2 mg STAT ONE Administration Morphine Sulfate Confirm 09/12/23 01:24 Morphine Sulfate 2 Mg/Ml Inj Administered 09/12/23 01:25 Dose 2 mg .ROUTE .STK-MED ONE Prochlorperazine Edisylate 5 mg 09/11/23 23:09 09/11/23 23:28 Prochlorperazine Edisylate 10 Mg/2 Ml Vial IV 09/11/23 23:10 5 mg STAT ONE Administration Prochlorperazine Edisylate Confirm 09/11/23 23:27 Prochlorperazine Edisylate 10 Mg/2 Ml Vial Administered 09/11/23 23:28 Dose 10 mg .ROUTE .STK-MED ONE Lab/Rad Data: Laboratory Result Diagrams 09/11/23 23:00 09/11/23 23:00 Laboratory Results 09/11/23 09/11/23 09/11/23 Range/Units 23:00 23:00 23:00 WBC 15.6 H (4.23-9.07) x10^3/uL RBC 4.68 (4.63-6.08) x10^6/uL Hgb 13.8 (13.7-17.5) g/dL Hct 42.3 (40.1-51.0) % MCV 90.4 (79.0-92.2) fL MCH 29.5 (25.7-32.2) pg MCHC 32.6 (32.3-36.5) g/dL RDW 13.4 (11.6-14.4) % Plt Count 229 (163-337) x10^3/uL MPV 10.4 (9.4-12.4) fL Gran % 80.1 H (34.0-67.9) % Immature Gran % (Auto) 0.4 (0.001-0.429) % Nucleat RBC Rel Count 0.0 (0.00-0.2) % Eos # (Auto) 0.02 L (0.04-0.54) x10^3/uL Immature Gran # (Auto) 0.07 H (0.001-0.031) x10^3u/L Absolute Lymphs (auto) 2.17 (1.32-3.57) x10^3/uL Absolute Monos (auto) 0.80 (0.30-0.82) x10^3/uL Absolute Nucleated RBC 0.00 (0.00-0.012) x10^3u/L Lymphocytes % 13.9 L (21.8-53.1) % Monocytes % 5.1 L (5.3-12.2) % Eosinophils % 0.1 L (0.8-7.0) % Basophils % 0.4 (0.2-1.2) % Absolute Granulocytes 12.44 H (1.78-5.38) x10^3/uL Basophils # 0.07 (0.01-0.08) x10^3/uL Sodium 140 (135-145) mmol/L Potassium 4.7 (3.5-5.1) mmol/L Chloride 106 (98-107) mmol/L Carbon Dioxide 19 L (22-30) mmol/L Anion Gap 19.1 H (5-15) MEQ/L BUN 22 H (9-20) mg/dL Creatinine 1.64 H (0.66-1.25) mg/dL Estimated GFR 44.4 ML/MIN Glucose 227 H (74-106) mg/dL Calcium 10.2 (8.4-10.2) mg/dL Total Bilirubin 0.60 (0.2-1.3) mg/dL AST 29 (17-59) U/L ALT 34 (0-50) U/L Alkaline Phosphatase 63 (38-126) U/L Troponin I < 0.012 (0.000-0.033) ng/mL Serum Total Protein 7.6 (6.3-8.2) g/dL Albumin 4.5 (3.5-5.0) g/dL - Progress Progress: improved, pain not gone completely, re-examined Progress Note: 09/12/23 00:03 My medical decision making and the assignment of moderate to high complexity to this patient's medical issue is based on review of the patient's past medical history, review the patient's medication list, review patient drug allergy list, history present illness and physical findings on examination. The workup in this patient includes placement of intravenous line, twelve-lead EKG, CBC, CMP, troponin level, chest x-ray and CT scan of the abdomen pelvis without contrast. 09/12/23 00:03 Differential diagnosis includes but is not limited to abdominal wall trauma, intra-abdominal or intrapelvic acute abnormality, electrolyte abnormalities, EKG arrhythmia 09/12/23 01:02 I interpreted the patient's laboratory data results. Patient has a leukocytosis of over 15,000 with a left shift. No other acute, emergent findings are present. Chest x-ray was interpreted by the radiologist and I reviewed the impression. Impression states no definite evidence of consolidation, cavitation or pleural effusion. There are amorphous calcifications seen proximal right humeral shaft. CT scan of the abdomen pelvis without contrast was interpreted by the radiologist and I reviewed the impression. Impression states high density mild to moderate abdominopelvic ascites representing hemoperitoneum. There is fairly large (14.5 cm x 4.2 cm) perisplenic hematoma. In addition there is mild high density fluid hemoperitoneum in the perihepatic region. 09/12/23 01:04 09/12/23 01:58 I spoke with the trauma surgeon, Dr. Singleton, [facility]. I reviewed the patient history, presenting complaint, results of the laboratory, EKG and radiographic studies. He felt that the patient, who currently is relatively hemodynamically stable, might be better served at a facility that has the ability to do angiography and embolization. They do not perform that type of procedure at that facility. We will contact a trauma center out of [place]. Patient's current vital signs have a systolic blood pressure of 112 and a heart rate of normal sinus rhythm at 100. His respiratory rate is 17 and his room air oxygen saturation level is 99%. 09/12/23 02:24 This patient was auto accepted at [facility] in [place]. The x- ray studies were sent to the cloud for them. The nursing staff here in the emergency department is caring air transport for this patient. 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 - Diagnostic Testing Diagnostic test were ordered, analyzed, and reviewed by me: Yes Radiological Interpretation: Reviewed by me, Teleradiologist Report - Risk of complications The pt has a high risk of morbidity or mortality based on: Decision regarding hospitilization or escalation of hosp level of care - Departure Departure Disposition: Transfer Clinical Impression: Trauma, Hemoperitoneum Condition: Serious Critical Care Time: Yes Critical Care Time(excluding separately billable procedures): Critical 30-74 mins (50) Referrals: SANIA CEBALLOS MD [Primary Care Provider] - Follow up/PCP as directed
[2023-09-11 23:14] LABS: Absolute Neutrophil Ct (ANC) 12.44 x10^3/uL (1.78-5.38); BASOPHIL % 0.4 % (0.2-1.2); Basophil (Absolute #) 0.07 x10^3/uL (0.01-0.08); Eosinophil % 0.1 % (0.8-7.0); Eosinophil (Absolute #) 0.02 x10^3/uL (0.04-0.54); Hematocrit 42.3 % (40.1-51.0); Hemoglobin 13.8 g/dL (13.7-17.5); IMMATURE GRAN # 0.07 x10^3u/L (0.001-0.031); IMMATURE GRAN % 0.4 % (0.001-0.429); Lymphocyte (Absolute #) 2.17 x10^3/uL (1.32-3.57); Lymphocytes % 13.9 % (21.8-53.1); Mean Cell Volume 90.4 fL (79.0-92.2); Mean Corpuscular Hemoglobin 29.5 pg (25.7-32.2); Mean Corpuscular Hgb Concent. 32.6 g/dL (32.3-36.5); Mean Platelet Volume 10.4 fL (9.4-12.4); Monocytes % 5.1 % (5.3-12.2); Neutrophil % 80.1 % (34.0-67.9); Platelet Count 229 x10^3/uL (163-337); Red Blood Count 4.68 x10^6/uL (4.63-6.08); Red Cell Distribution Width 13.4 % (11.6-14.4); White Blood Count 15.6 x10^3/uL (4.23-9.07)
[2023-09-11 23:20] LABS: ALBUMIN 4.5 g/dL (3.5-5.0); ANION GAP 19.1 MEQ/L (5-15); BILIRUBIN,TOTAL 0.6 mg/dL (0.2-1.3); Calcium 10.2 mg/dL (8.4-10.2); Creatinine 1 1.64 mg/dL (0.66-1.25); EST GLOMERULAR FILTRATION RATE 44.4 ML/MIN; Potassium 4.7 mmol/L (3.5-5.1); Total Protein 7.6 g/dL (6.3-8.2)
[2023-09-11] MEDS ORDERED: Sodium Chloride 0.9% 1000 ML 1,000 ML ONE (23:27)
[2023-09-11] MEDS ORDERED: Compazine 10 MG/2 ML ONE (23:27)
[2023-09-11] MEDS ORDERED: MORPHINE SULFATE 4 MG INJ ONE (23:27)
[2023-09-11] MEDS: Compazine 10 MG/2 ML IV ONE (23:28)
[2023-09-11] MEDS: MORPHINE SULFATE 4 MG INJ IV ONE (23:29)
[2023-09-11] MEDS: Sodium Chloride 0.9% 1000 ML 1,000 ML IV SCH (23:29)
--- NOTE | 2023-09-12 00:48 | XRAY ---
CLINICAL HISTORY: Mild shortness of breath COMPARISON: None. TECHNIQUE: X-ray Chest frontal projection. FINDINGS: Poor inspiratory effort noted. Sternotomy sutures and surgical clips present represent CABG. A radiographic examination of the chest demonstrates clear lungs. Normal configuration of the mediastinum. The luis are normal in size and position. The cardiac size is normal. Costophrenic and cardiophrenic angles are clear. Spurs line the margins of the vertebral bodies. Amorphous calcifications are identified projecting over the medullary cavity of the proximal right humeral shaft. IMPRESSION: 1. No definite evidence of consolidation, cavitation, or pleural effusion. 2. Amorphous calcifications projecting over the medullary cavity of the proximal right humeral shaft. Dedicated imaging is recommended for further evaluation. Electronically Signed by: Leopoldo Hercules MD. (09/12/2023 00:43:58 EDT)
--- NOTE | 2023-09-12 00:48 | XRAY ---
CLINICAL HISTORY: Fall injury with abdominal pain COMPARISON: None TECHNIQUE: CT scan of the abdomen and pelvis was performed without IV contrast.Coronal and sagittal reconstructive images were also obtained.One of the following dose reduction techniques were utilized for this exam: Automated exposure control, adjustment of the mA and/or kV according to patient size, use of iterative reconstruction. FINDINGS: Limited organ parenchymal evaluation within the limitations of noncontrast study. Sections of lower thorax show no significant injury. No definite fracture is noted in visualized ribs. Abdomen: High density mild to moderate abdominopelvic ascites noted, representing hemoperitoneum. Fairly large 14.5 x 4.2 cm perisplenic hematoma noted. Mild high density fluid is seen in perihepatic region. The liver is of average size. No focal or diffuse parenchymal abnormality. The intrahepatic biliary radicals and the bile ducts are normal. The gallbladder is distended. There is no evidence of wall thickening/ pericholecystic collection. The pancreas, adrenal glands are unremarkable. Multiple calculi varying in size from 2-6 mm are seen in all the calyces of both kidneys. No significant hydronephrosis.. Suggestion of bilateral renal parenchymal disease with mild non-specific perinephric fat stranding. Multiple hypodense renal cortical cysts noted, largest measuring 22 mm at mid pole of left kidney with a small 7 mm hyperdense cyst at lower pole of right kidney, representing mucoid/hemorrhagic cyst Uncomplicated colonic diverticulosis noted. The abdominal aorta shows atherosclerotic changes with calcified plaques. Pelvis: Bilateral hip arthroplasty status with metallic streak artifacts resulting in image deterioration in pelvis. The visualized urinary bladder is unremarkable. The visualized prostate appears unremarkable. The lumbar spine shows degenerative changes. IMPRESSION: 1. High density mild to moderate abdominopelvic ascites, representing hemoperitoneum. 2. Fairly large 14.5 x 4.2 cm perisplenic hematoma, possibility of underlying splenic injury needs to be considered. Limited evaluation due to lack of contrast. 3. Mild high density fluid representing hemoperitoneum in perihepatic region. 4. A CT abdomen with contrast using angiographic protocol is recommended to rule out visceral injury / active bleeding. 5. Multiple bilateral non-obstructive renal calculi varying in size from 2-6 mm 6. Multiple hypodense renal cortical cysts noted, largest measuring 22 mm at mid pole of left kidney with a small 7 mm hyperdense cyst at lower pole of right kidney, representing mucoid/hemorrhagic cyst 7. Uncomplicated colonic diverticulosis. Limited organ parenchymal evaluation within the limitations of noncontrast study. Electronically Signed by: Leopoldo Hercules MD. (09/12/2023 00:40:32 EDT) ADDENDUM: 09/12/2023 00:43:40 EDT [facility] ER was called at , Ext#[id number] at 11:41 PM ACADEMIC SUCCESS COORDINATOR and Dr. Juarez was informed about significant medical findings. Electronically Signed by: Leopoldo Hercules MD. (09/12/2023 00:43:40 EDT)
[2023-09-12] MEDS ORDERED: MORPHINE SULFATE 2 MG INJ ONE (01:24)
[2023-09-12] MEDS: MORPHINE SULFATE 2 MG INJ IV ONE (01:26)
[2023-09-12 03:18] VITALS: BP 102/80; PULSE 109; RESP 30; O2SAT 95
== END 2023-09-12 03:21 | disposition short-term general hospital (02) ==
LOC: ED 22:27
DX: S36.899A Unspecified injury of other intra-abdominal organs, initial encounter (principal); W18.30XA Fall on same level, unspecified, initial encounter; Y92.71 Barn as the place of occurrence of the external cause; R10.9 Unspecified abdominal pain; I11.0 Hypertensive heart disease with heart failure; I50.9 Heart failure, unspecified; E78.5 Hyperlipidemia, unspecified; Z79.02 Long term (current) use of antithrombotics/antiplatelets; Z79.899 Other long term (current) drug therapy
CPT/HCPCS: 36000; 36415; 71045; 74176; 80053; 84484; 85025; 93005; 96374; 96375; 96376; 99285; 99291; J2270